=== PATIENT | male | born 2005 | race Caucasian/White ===

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

== ENCOUNTER 2024-09-17 22:32 | Emergency (ER) | payer OTHER, BC, SELFPAY ==
[2024-09-17] VITALS (8 sets, daily range): BP systolic 123–147; BP diastolic 75–93; PULSE 87–114; RESP 16–36; TEMP 36.4; O2SAT 100
--- NOTE | ~2024-09-17 | XR_ITS ---
EXAMINATION: XR chest 1V portable DATE: 09/17/2024 23:53 INDICATION: Chest pain. Supraventricular tachycardia. TECHNIQUE: frontal view of the chest was obtained. COMPARISON: None FINDINGS: The lungs are clear with no focal airspace opacities, pulmonary edema, pleural effusion or pneumothor ax. The cardiomediastinal silhouette is normal. Dual lead pacemaker seen with leads projecting over t he expected locations of the right atrium and right ventricle. IMPRESSION: 1. No acute cardiopulmonary disease. Reviewed, dictated and finalized at location A. N ASSISTANT
--- NOTE | ~2024-09-17 | CT_ITS ---
EXAMINATION: CT abdomen pelvis wo con DATE: 09/17/2024 23:52 INDICATION: Left flank pain TECHNIQUE: Computed tomography (CT) of the abdomen and pelvis was performed without intravenous contr ast. Automated exposure control and iterative reconstruction technique were employed. The dose-length product was 436.10 mGy-cm. COMPARISON: None FINDINGS: Lung bases are clear. Heart size is normal. No pericardial or pleural effusion. Cardiac pacemaker wit h lead tip at the apex of the right ventricle and second right atrial lead seen on the outside food server topogram . Liver, gallbladder, spleen, pancreas and bilateral adrenal glands are normal. Kidneys and ureters a re normal with no urolithiasis, hydroureteronephrosis or perinephric/ureteral stranding. Bladder is n ormal. Bowels including the appendix are normal. No free intraperitoneal gas or fluid. No pathologica lly enlarged abdominal or pelvic lymphadenopathy. Bones are unremarkable. IMPRESSION: 1. No urolithiasis or acute intra-abdominal/pelvic process. Reviewed, dictated and finalized at location A. ISTICS TESTER
--- NOTE | 2024-09-17 22:58 | ECG_ITS ---
Test Date: 2024-09-17 23:04:19 Measurements Intervals Proctor Rate: 91 P: 67 MA: 122 QRS: 81 QRSD: 100 T: 47 QT: 343 QTc: 423 Interpretive Statements SINUS RHYTHM WITH SINUS ARRHYTHMIA INTRAVENTRICULAR CONDUCTION DELAY ABNORMAL ECG No previous ECG available for comparison Electronically Signed On 09-18-2024 09:01:37 VISUAL MERCHANDISER by Jean Claude Castillo M.D.
[2024-09-17 23:14] LABS: Basophils Percent Auto 0.2 % (0.2-1.2); Eosinophils Percent Auto 0.1 % (0-4.4); Hemoglobin 17.7 g/dL (14.0-18.0); Immature Granulocyte Absolute 0.09 K/mm3 (0.00-0.031); Immature Granulocyte Percent A 0.5 % (0-0.5); Lymphocytes Absolute Auto 0.39 K/mm3 (0.9-3.2); Mean Corpuscular HGB Conc 35.4 g/dl (32-36); Mean Corpuscular Hemoglobin 30.9 pg (26-34); Mean Corpuscular Volume 87.3 fl (80-100); Mean Platelet Volume 9.5 fl (7.4-10.4); Monocytes Absolute Auto 0.8 K/mm3 (0.1-0.6); Monocytes Percent Auto 3.8 % (2.6-8.5); Neutrophils Absolute Auto 18.7 K/mm3 (1.3-6.7); Neutrophils Percent Auto 93.4 % (45.5-73.1); Platelet Count Result 273 k/mm3 (150-375); Red Blood Count 5.73 M/mm3 (4.6-6.20); Red Cell Distribution Width 12.3 % (11.5-14.5)
[2024-09-17 23:23] LABS: Alanine Aminotransferase 23 U/L (6-50); Albumin Level 5.3 g/dL (3.5-5.1); Alkaline Phosphatase 89 U/L (38-126); Anion Gap 12 mmol/L (4-12); Aspartate Amino Transferase 40 U/L (17-59); Bilirubin,Total 1.9 mg/dL (0.2-1.3); Blood Urea Nitrogen 21 mg/dL (9-20); Calcium 10.6 mg/dL (8.4-10.2); Carbon Dioxide 18 mmol/L (22-30); Chloride 107 mmol/L (98-107); Estimated CRCL calculation 96 ml/min; Estimated Glomerular Filt Rate > 60; Glucose 164 mg/dL (65-110); Lipase 46 U/L (23-300); Potassium 4.1 mmol/L (3.4-5.0); Sodium 137 mmol/L (137-145)
[2024-09-17] MEDS: SODIUM CHLORIDE 0.9% IV 1,000 ML 999 ML IV CONT (23:31)
[2024-09-17] MEDS: HYDROmorphone HCL INJ (*CRX) 1 MG/ML SYR IV PUSH (23:31)
[2024-09-17] MEDS: PROCHLORPERAZINE EDISYLATE 10 MG/2 ML VIAL IV PUSH (23:31)
[2024-09-18] VITALS (8 sets, daily range): BP systolic 118; BP diastolic 63; PULSE 80–97; RESP 15–21; O2SAT 95–99
--- NOTE | 2024-09-18 01:33 | ED.GENADULT ---
HPI - General Adult General Chief complaint: Nausea/Vomiting/Diarrhea Stated complaint: n/v/d, SILVEIRA, UA sx Time Seen by Provider: 09/17/24 23:04 History of Present Illness HPI narrative: Patient is a 19-year-old gentleman who presents emergency department with chief complaint of left-sided flank pain chills and body aches the patient reports that he has a pacemaker is being evaluated for possible hypertrophic cardiomyopathy. Patient reports that the symptoms are severe reports he has family history for kidney stones reports that this is very similar to presentations that his father has had. Related Data Allergies Allergy/AdvReac Type Severity Reaction Status Date / Time No Known Allergies Allergy Verified 09/17/24 22:41 Review of Systems Review of Systems: A 10 system review of systems was completed on the patient and is negative except for what is stated in the HPI. Nursing and ancillary documentation was reviewed. [facility] Past Medical History Medical History Hx of cardiac pacemaker Abnormal EKG Irregular heart beat Migraines Hypertension Recurrent convulsions Hypospadias in male Surgical History Surgical History History of mandibular surgery Hx of tympanostomy tubes Family History Family History Father Diabetes mellitus Neuroendocrine cancer Social History Social History Smoking status: Never smoker Second hand tobacco smoke exposure: No Alcohol intake: never Substance use: never Substance use type: does not use Living arrangements: with family Occupation/Education: student Gender identity (if verbalized by the patient): Male Exam Narrative: GENERAL: Well-appearing, well-nourished, and in acute pain distress. HEAD: Normocephalic, atraumatic. EYES: PERRLA and EOMI. ENT: Nares clear, no rhinorrhea or epistaxis. Mucous membranes moist. NECK: Supple. CHEST: Clear to auscultation. No respiratory distress. HEART: Regular rate and rhythm. No murmur heard. Normal peripheral pulses. ABDOMEN: Soft, nontender, nondistended, normal active bowel sounds. EXTREMITIES: Normal range of motion. No edema. SKIN: Warm, dry, no rash. NEURO: No focal deficits. Alert and oriented x3. PSYCH: Normal mood and affect. Course Vital Signs Vital signs: Vital Signs Temperature 36.4 C 09/17/24 22:35 Pulse Rate 87 09/17/24 22:35 Respiratory Rate 22 H 09/17/24 22:35 Blood Pressure 123/93 H 09/17/24 22:35 Pulse Oximetry 100 09/17/24 22:35 Oxygen Delivery Room Air 09/17/24 22:35 Temperature 36.4 C 09/17/24 22:35 Pulse Rate 93 09/18/24 02:00 Respiratory Rate 15 09/18/24 02:00 Blood Pressure 139/75 09/17/24 23:32 Pulse Oximetry 98 09/18/24 01:15 Oxygen Delivery Room Air 09/17/24 22:35 Medical Decision Making MDM Narrative Medical decision making narrative: Differential diagnosis includes ureterolithiasis, UTI, gastroenteritis, dysrhythmia, ACS EKG showed no acute ischemic changes Troponin was negative White blood cell count was elevated at 20 electrolytes within normal limits potassium was 4.1 lipase was normal urinalysis showed 3+ ketones COVID flu and RSV were negative CT scan of the abdomen pelvis showed no acute abnormality Vital Signs Vital Signs: Vital Signs Temperature 36.4 C 09/17/24 22:35 Pulse Rate 87 09/17/24 22:35 Respiratory Rate 22 H 09/17/24 22:35 Blood Pressure 123/93 H 09/17/24 22:35 Pulse Oximetry 100 09/17/24 22:35 Oxygen Delivery Room Air 09/17/24 22:35 Temperature 36.4 C 09/17/24 22:35 Pulse Rate 93 09/18/24 02:00 Respiratory Rate 15 09/18/24 02:00 Blood Pressure 139/75 09/17/24 23:32 Pulse Oximetry 98 09/18/24 01:15 Oxygen Delivery Room Air 09/17/24 22:35 Lab Data 09/17/24 22:52 09/17/24 22:52 Labs: Lab Results 09/17/24 09/18/24 Range/Units 22:52 01:26 WBC 20.0 H (4.5-10.0) K/mm3 RBC 5.73 (4.6-6.20) M/mm3 Hgb 17.7 (14.0-18.0) g/dL Hct 50.0 (42.0-52.0) % MCV 87.3 (80-100) fl MCH 30.9 (26-34) pg MCHC 35.4 (32-36) g/dl RDW 12.3 (11.5-14.5) % Plt Count 273 (150-375) k/mm3 MPV 9.5 (7.4-10.4) fl Immature Gran % (Auto) 0.5 (0-0.5) % Neut % (Auto) 93.4 H (45.5-73.1) % Lymph % (Auto) 2.0 L (18.3-44.2) % [place] % (Auto) 3.8 (2.6-8.5) % Eos % (Auto) 0.1 (0-4.4) % Baso % (Auto) 0.2 (0.2-1.2) % Lymph # (Auto) 0.39 L (0.9-3.2) K/mm3 [place] # (Auto) 0.8 H (0.1-0.6) K/mm3 Eos # (Auto) 0.0 (0-0.3) K/mm3 Baso # (Auto) 0.0 (0.0-0.1) K/mm3 Abs Immat Gran (auto) 0.09 H (0.00-0.031) K/mm3 Absolute Neuts (auto) 18.7 H (1.3-6.7) K/mm3 Absolute Nucleated RBC 0.000 (0.0-0.012) K/mm3 Nucleated RBC % 0.0 (0.0-0.2) % Sodium 137 (137-145) mmol/L Potassium 4.1 (3.4-5.0) mmol/L Chloride 107 (98-107) mmol/L Carbon Dioxide 18 L (22-30) mmol/L Anion Gap 12 (4-12) mmol/L BUN 21 H (9-20) mg/dL Creatinine 1.20 (0.7-1.3) mg/dL Estim Creat Clear Calc 96 ml/min Estimated GFR > 60 (59 - ) Glucose 164 H (65-110) mg/dL Calcium 10.6 H (8.4-10.2) mg/dL Total Bilirubin 1.9 H (0.2-1.3) mg/dL AST 40 (17-59) U/L ALT 23 (6-50) U/L Alkaline Phosphatase 89 (38-126) U/L Troponin I < 0.012 (0.000-0.034) ng/mL Total Protein 8.0 (6.3-8.2) g/dL Albumin 5.3 H (3.5-5.1) g/dL Lipase 46 (23-300) U/L Urine Color Yellow (Yellow) Urine Appearance Clear (Clear) Urine pH 6.0 (5.0-9.0) Ur Specific [place] 1.020 (1.001-1.035) Urine Protein 1+ H (Negative) mg/dL Urine Glucose (UA) Negative (Negative) mg/dL Urine Ketones 3+ H (Negative) mg/dL Ur Blood (Man) 1+ H (Negative) Urine Nitrate Negative (Negative) Urine Bilirubin 1+ H (Negative) Urine Urobilinogen 0.2 (<2.0) mg/dL Add Ur Microanalysis Reviewed Leukocyte Esterase Rfl Negative (Negative) JUANY/UL Urine RBC 0-2 (0-2) /hpf Urine WBC 0-5 (0-3) /hpf Ur Squamous Epith Cells None seen (Few) /hpf Urine Bacteria None seen /hpf Urine Casts 0-2 Influenza A (RT-PCR) Negative (Negative) Influenza B (RT-PCR) Negative (Negative) RSV (RT-PCR) Negative (Negative) SARS-CoV-2 RNA (RT-PCR) Negative (Negative) Discharge Plan Discharge Clinical Impression: Nausea and vomiting, Acute flank pain Patient Disposition: Home, Self-Care Condition: Stable Instructions: Antibiotic Form, Acute Nausea and Vomiting (ED), Flank Pain (ED) Patient Language: Lithuanian Prescriptions: New ondansetron 4 mg tablet,disintegrating 4 mg PO Q8H PRN (Reason: nausea and vomiting) Qty: 10 0RF No Action amoxicillin-pot clavulanate [Augmentin] 875-125 mg tablet 1 tablet PO BID Qty: 20 0RF rizatriptan 5 mg tablet 5 mg PO ONCE PRN (Reason: migraine headache) Qty: 10 0RF Rx Instructions: as a single dose clonidine HCl 0.2 mg tablet 0.2 mg PO .QHS Qty: 90 0RF Follow-up/Referrals: PHYSICIAN,COMMERCIAL CREDIT SPECIALIST [Primary Care Provider] - Time of Disposition: 03:12
[2024-09-18] MEDS: SODIUM CHLORIDE 0.9% IV 1,000 ML 999 ML IV CONT (01:34)
[2024-09-18] MEDS: HYDROmorphone HCL INJ (*CRX) 1 MG/ML SYR IV PUSH (01:35)
[2024-09-18 01:58] LABS: Bacteria Urine None Seen /hpf; Need Manual Microscopic Reviewed; Non Pathogenic Casts 0-2; RBC Urine 0-2 /hpf (0-2); Squamous Epithelial Cell Urine None Seen /hpf (Few); WBC Urine 0-5 /hpf (0-3)
[2024-09-18 02:11] LABS: Influenza A QL RT-PCR Negative (Negative); Influenza B QL RT-PCR Negative (Negative); RSV RNA, RT-PCR Negative (Negative); SARS-CoV-2 RNA PCR Negative (Negative)
[2024-09-18 02:15] LABS: Add Urine Microscopic? YES; Appearance Urine Clear (Clear); Color Urine Yellow (Yellow); Glucose Urine UA Negative (Negative); Protein Urine 1+ mg/dL (Negative)
[2024-09-18 02:16] LABS: Bilirubin Urine 1+ (Negative); Blood Urine 1+ (Negative); Ketones Urine 3+ mg/dL (Negative); Leukocyte Esterase Ur Negative LEU/UL (Negative); Nitrate Urine Negative (Negative); Urobilinogen Urine 0.2 mg/dL (<2.0)
[2024-09-18 02:35] LABS: Troponin I < 0.012 ng/mL (0.000-0.034)
== END 2024-09-18 03:29 | disposition home or self-care (01) ==
PROVIDERS: Emergency Provider Emergency Medicine
DX: R10.9 Unspecified abdominal pain (principal); R11.2 Nausea with vomiting, unspecified; Z20.822 Contact with and (suspected) exposure to COVID-19; I10 Essential (primary) hypertension; Z95.0 Presence of cardiac pacemaker; Z79.899 Other long term (current) drug therapy; I45.9 Conduction disorder, unspecified
CPT/HCPCS: 36415; 71045; 74176; 80053; 81001; 83690; 84484; 85025; 87637; 93005; 96361; 96374; 96375; 99284; J0780; J1171; J7030